=== PATIENT | female | born 1985 | race Caucasian/White ===

== ENCOUNTER 2019-02-13 18:27 | Emergency (ER) | payer BC ==
[2019-02-13] MEDS ORDERED: AZITHROMYCIN 250 MG TABLET PO ONE (18:56)
--- NOTE | 2019-02-13 19:00 | ED Physician Documentation ---
Sore Throat/Dental Pain - HPI Stated Complaint: sore throat Chief Complaint: Sore Throat Additional Information: Patient is a 33-year-old male that presents to the ER with c/o sore throat that started 3 days ago. A couple of her children were diagnosed with strep last w . Denies any fever, chills, nausea, or vomiting. Onset: days ago Context: Possible Infection Associated Symptoms: sore throat. denies: fever, chills - ROS CONST: no problems CVS/RESP: none GI/: denies: nausea, vomiting MS/SKIN/LYMPH: denies: rash NEURO/PSYCH: none - PAST HX Past History: tonsillectomy Other History: none Immunizations: UTD Allergies/Adverse Reactions: Allergies Allergy/AdvReac Type Severity Reaction Status Date / Time amoxicillin [From Amoxil] Allergy Hives Verified 02/13/19 18:50 Home Medications: Ambulatory Orders Medication Instructions Recorded Azithromycin [Zithromax] 250 mg PO DAILY #4 tablet 02/13/19 - SOCIAL HX Smoking History: quit less than 1 year Alcohol Use: none Drug Use: none - FAMILY HX Family History: No - VITAL SIGNS Vital Signs: Vital Signs Temp Pulse Resp BP Pulse Ox 98.4 F 74 16 132/84 100 02/13/19 18:47 02/13/19 18:47 02/13/19 18:47 02/13/19 18:47 02/13/19 18:47 - REVIEWED ASSESSMENTS Nursing Assessment Reviewed: Yes Vitals Reviewed: Yes ED Results Lab/Radiology - Orders Orders: ED Orders Category Date Time Status Rapid Strep [GRP A STREP SCREEN] Stat Lab 02/13/19 Ordered Azithromycin [Zithromax] Med 02/13/19 18:56 Discontinued 500 mg PO NOW ONE Sore throat Physical Exam - EXAM General Appearance: no acute distress, alert Head/Neck: head nml inspection Eyes: eyes nml inspection, PERRL, pain of sinuses Mouth/Throat: lips nml, voice nml, no drooling, no air way problems, membranes nml, pharyngeal erythema Ear/Nose: nml inspection Respiratory: breath sounds nml CVS: heart sounds nml Extremities: nml ROM Skin: warm/dry, normal color Neuro/Psych: oriented x3, mood/affect nml Discharge Clincal Impression: Strep pharyngitis Prescriptions: Azithromycin [Zithromax] 250 mg PO DAILY #4 tablet Referrals: Primary Doctor,No [Primary Care Provider] - 2 Days Additional Instructions: Start Zithromax tomorrow (1st dose given in ER) Increase water intake Warm salt water gargles Alternate Tylenol and Ibuprofen as needed for discomfort Hot tea with 1 tsp of honey will help thin secretions Follow up with PCP in one week for re-evaluation Comments: Positive strep test Condition: Good Disposition: 01 HOME, SELF-CARE Decision to Admit: NO Decision Time: 19:12
[2019-02-13 20:01] VITALS: BP 128/67
== END 2019-02-13 19:25 | disposition home or self-care (01) ==
LOC: ED 18:27
DX: J02.0 Streptococcal pharyngitis (principal)
CPT/HCPCS: 87880; 99283